=== PATIENT | female | born 1985 | race Caucasian/White ===

== ENCOUNTER 2018-07-24 14:36 | Emergency (ER) | payer MEDICAID ==
--- NOTE | 2018-07-24 15:31 | EDM.PDOC ---
ED HPI GENERAL MEDICAL PROBLEM - General Chief Complaint: General Stated Complaint: ABCESSED TOOTH, SWOLLEN FACE Time Seen by Provider: 07/24/18 15:20 Source of Information: Reports: Patient, RN Notes Reviewed History Limitations: Reports: No Limitations - History of Present Illness INITIAL COMMENTS - FREE TEXT/NARRATIVE: Calli presents today for complaints of worsening left facial pain/edema and pain. Dental abscess with current use of augmenting, worsening edema, fevers and chills. Left Face/Facial Pain Score (Numeric/FACES): 5 - Related Data Allergies Allergy/AdvReac Type Severity Reaction Status Date / Time No Known Allergies Allergy Verified 07/24/18 15:13 Home Meds: Home Meds Amoxicillin/Clavulanate K [Augmentin 500-125 MG] 1 tab PO ASDIRECTED 07/24/18 [ History] Cholecalciferol (Vitamin D3) [Vitamin D] 1 tab PO DAILY 07/24/18 [History] Past Medical History Genitourinary History: Reports: None [employer] History: Reports: Endocrine/Metabolic History: Reports: Obesity/BMI 30+ - Past Surgical History Head Surgeries/Procedures: Reports: None Female Surgical History: Reports: Salpingo-Oophorectomy Endocrine Surgical History: Reports: None Dermatological Surgical History: Reports: None Social & Family History - Tobacco Use Smoking Status *Q: Current Every Day Smoker Years of Tobacco use: 15 Packs/Tins Daily: 0.5 Second Hand Smoke Exposure: No - Caffeine Use Caffeine Use: Reports: Coffee - Alcohol Use Days Per Week of Alcohol Use: 2 Number of Drinks Per Day: 3 Total Drinks Per Week: 6 - Recreational Drug Use Recreational Drug Use: No ED ROS GENERAL - Review of Systems Review Of Systems: See Below Constitutional: Reports: Fever, Chills HEENT: Reports: Dental Pain, Nose Pain, Other (paint to left face, maxillary sinus and left nose. ). Denies: Ear Discharge, Ear Pain, Eye Discharge, Eye Pain Respiratory: Reports: No Symptoms Cardiovascular: Reports: No Symptoms GI/Abdominal: Reports: No Symptoms Skin: Reports: Other (edema, erythema left face) Neurological: Reports: No Symptoms Psychiatric: Reports: No Symptoms Hematologic/Lymphatic: Reports: No Symptoms Immunologic: Reports: No Symptoms ED EXAM, GENERAL - Physical Exam Exam: See Below Free Text/Narrative:: Calli presents today for complaints of increased swelling and pain to left face. Exam Limited By: No Limitations General Appearance: Alert, WD/WN, Mild Distress Eye Exam: Bilateral Eye: Normal Inspection, PERRL, Vision Changes Ears: Normal External Exam, Normal Canal, Hearing Grossly Normal, Normal TMs Ear Exam: Bilateral Ear: Auricle Normal, Canal Normal, TM normal Nose: Normal Inspection, Normal Mucosa, No Blood Throat/Mouth: No Airway Compromise, Inflammation, Other (edema, erythema to left cheek, noted purulent drainage to upper left gum line. ) Head: Atraumatic, Facial Swelling Neck: Normal Inspection, Supple, Non-Tender, Full Range of Motion, Lymphadenopathy (L). No: Lymphadenopathy (R) Respiratory/Chest: No Respiratory Distress, Lungs Clear, Normal Breath Sounds, No Accessory Muscle Use, Chest Non-Tender Cardiovascular: Normal Peripheral Pulses, Regular Rate, Rhythm, No Edema, No Gallop, No Murmur, No Rub, Other Peripheral Pulses: 2+: Radial (L), Radial (R) Extremities: Normal Inspection, Normal Range of Motion, Non-Tender, No Pedal Edema, Normal Capillary Refill Neurological: Alert, Oriented, CN II-XII Intact, Normal Cognition, Normal Gait, Normal Reflexes, No Motor/Sensory Deficits Psychiatric: Normal Affect, Normal Mood Skin Exam: Warm, Dry, Erythema, Increased Warmth, Other (to left face) Course - Vital Signs Last Recorded V/S: Last Vital Signs Temp 37.1 C 07/24/18 15:15 Pulse 120 H 07/24/18 15:15 Resp 16 07/24/18 15:15 BP 157/98 H 07/24/18 15:15 Pulse Ox 96 07/24/18 15:15 - Orders/Labs/Meds Labs: Laboratory Tests 07/24/18 07/24/18 Range/Units 15:40 15:40 WBC 10.1 (4.5-11.0) K/uL RBC 4.68 (3.30-5.50) M/uL Hgb 14.8 (12.0-15.0) g/dL Hct 43.5 (36.0-48.0) % MCV 93 (80-98) fL MCH 32 H (27-31) pg MCHC 34 (32-36) % Plt Count 222 (150-400) K/uL Neut % (Auto) 78 H (36-66) % Lymph % (Auto) 14 L (24-44) % [place] % (Auto) 7 H (2-6) % Eos % (Auto) 1 L (2-4) % Baso % (Auto) 0 (0-1) % Sodium 137 L (140-148) mmol/L Potassium 4.1 (3.6-5.2) mmol/L Chloride 100 (100-108) mmol/L Carbon Dioxide 25 (21-32) mmol/L Anion Gap 16.1 H (5.0-14.0) mmol/L BUN 8 (7-18) mg/dL Creatinine 0.8 (0.6-1.0) mg/dL Est Cr Clr Drug Dosing 103.55 mL/min Estimated GFR (MDRD) > 60 (>60) Glucose 108 H (74-106) mg/dL Calcium 9.6 (8.5-10.1) mg/dL Patient lab work reviewed She will stop use of augmentin and start use of clindamycin as directed Patient in agreement with plan Follow up with dentist as needed Departure - Departure Time of Disposition: 16:00 Disposition: Home, Self-Care 01 Condition: Good Clinical Impression: Dental abscess - Discharge Information *PRESCRIPTION DRUG MONITORING PROGRAM REVIEWED*: Not Applicable *COPY OF PRESCRIPTION DRUG MONITORING REPORT IN PATIENT MARYELLEN: Not Applicable Instructions: Dental Abscess Referrals: PCP,None [Primary Care Provider] - Forms: ED Department Discharge Additional Instructions: Dental abscess with drainaing. Stop use of augmentin and start use of clindamycin as directed Patient in agreement with plan Follow up with dentist as needed Take ibuprofen 800mg by mouth three times a day as needed Can also take tylenol as needed for pain Follow up with dentist as needed Return for any worsening, issues or concerns - Assessment/Plan Assessment:: Dental Abscess Plan: Dental abscess with drainaing. Stop use of augmentin and start use of clindamycin as directed Patient in agreement with plan Follow up with dentist as needed Take ibuprofen 800mg by mouth three times a day as needed Can also take tylenol as needed for pain Follow up with dentist as needed Return for any worsening, issues or concerns
--- NOTE | 2018-07-24 15:33 | EDM.PDOC ---
ED HPI GENERAL MEDICAL PROBLEM - General Chief Complaint: General Stated Complaint: ABCESSED TOOTH, SWOLLEN FACE Time Seen by Provider: 07/24/18 15:20 Source of Information: Reports: Patient, RN Notes Reviewed History Limitations: Reports: No Limitations - History of Present Illness INITIAL COMMENTS - FREE TEXT/NARRATIVE: Calli presents today for complaints of worsening left facial pain/edema and pain. Dental abscess with current use of augmenting, worsening edema, fevers and chills. Left Face/Facial Pain Score (Numeric/FACES): 5 - Related Data Allergies Allergy/AdvReac Type Severity Reaction Status Date / Time No Known Allergies Allergy Verified 07/24/18 15:13 Home Meds: Home Meds Amoxicillin/Clavulanate K [Augmentin 500-125 MG] 1 tab PO ASDIRECTED 07/24/18 [ History] Cholecalciferol (Vitamin D3) [Vitamin D] 1 tab PO DAILY 07/24/18 [History] Past Medical History Genitourinary History: Reports: None [employer]ING [employer] History: Reports: Endocrine/Metabolic History: Reports: Obesity/BMI 30+ - Past Surgical History Head Surgeries/Procedures: Reports: None Female Surgical History: Reports: Salpingo-Oophorectomy Endocrine Surgical History: Reports: None Dermatological Surgical History: Reports: None Social & Family History - Tobacco Use Smoking Status *Q: Current Every Day Smoker Years of Tobacco use: 15 Packs/Tins Daily: 0.5 Second Hand Smoke Exposure: No - Caffeine Use Caffeine Use: Reports: Coffee - Alcohol Use Days Per Week of Alcohol Use: 2 Number of Drinks Per Day: 3 Total Drinks Per Week: 6 - Recreational Drug Use Recreational Drug Use: No ED ROS ENT - Review of Systems Constitutional: Reports: Fever, Chills Course - Vital Signs Last Recorded V/S: Last Vital Signs Temp 37.1 C 07/24/18 15:15 Pulse 120 H 07/24/18 15:15 Resp 16 07/24/18 15:15 BP 157/98 H 07/24/18 15:15 Pulse Ox 96 07/24/18 15:15 - Orders/Labs/Meds Orders: Active Orders 24 hr Category Date Time Status BASIC METABOLIC PANEL,BMP [CHEM] Stat Lab 07/24/18 15:29 Ordered CBC WITH AUTO DIFF [HEME] Stat Lab 07/24/18 15:29 Ordered Departure - Discharge Information Referrals: PCP,None [Primary Care Provider] - Forms: ED Department Discharge - My Orders Last 24 Hours: My Active Orders 07/24/18 15:29 BASIC METABOLIC PANEL,BMP [CHEM] Stat CBC WITH AUTO DIFF [HEME] Stat - Assessment/Plan Last 24 Hours: My Active Orders 07/24/18 15:29 BASIC METABOLIC PANEL,BMP [CHEM] Stat CBC WITH AUTO DIFF [HEME] Stat
== END 2018-07-24 16:04 | disposition home or self-care (01) ==
LOC: JP.ED 14:36
DX: K04.7 Periapical abscess without sinus (principal); F17.210 Nicotine dependence, cigarettes, uncomplicated; Z79.899 Other long term (current) drug therapy
CPT/HCPCS: 36415; 80048; 85025; 99283

== ENCOUNTER 2022-02-12 07:09 | Day surgery (SDC) | payer MEDICAID ==
[2022-02-12] MEDS ORDERED: Neostigmine Methylsulfate 1 MG/ML 5 ML Syringe ONE (07:12)
[2022-02-12] MEDS ORDERED: Succinylcholine 200 MG/10 ML MDV ONE (07:12)
[2022-02-12] MEDS ORDERED: Dexamethasone 4 MG/ML SDV ONE (07:12)
[2022-02-12] MEDS ORDERED: fentaNYL 250 MCG/5 ML SDV ONE ×2 (07:12→09:51)
[2022-02-12] MEDS ORDERED: Ondansetron 4 MG/2 ML SDV ONE (07:12)
[2022-02-12] MEDS ORDERED: Propofol 200 MG/20 ML SDV ONE (07:12)
[2022-02-12] MEDS ORDERED: Glycopyrrolate 0.2 MG/ML 5 ML MDV ONE (07:12)
[2022-02-12] MEDS ORDERED: Rocuronium 50 MG/5 ML Vial ONE ×2 (07:12→10:34)
[2022-02-12] MEDS ORDERED: Dextrose 5%-Lactated Ringers 1,000 ML IV SCH (07:45)
[2022-02-12] MEDS ORDERED: Acetaminophen 500 MG Tab PO ONE (07:45)
[2022-02-12] MEDS ORDERED: ceFAZolin 2 GM in Sodium Chloride 0.9% 50 ML IV ONE (07:45)
[2022-02-12] MEDS ORDERED: Albuterol/Ipratropium 3.0-0.5 MG/3 ML Neb Soln NEB ONE (08:29)
[2022-02-12] MEDS ORDERED: Ketamine 500 MG/5 ML MDV IV SCH (09:00)
[2022-02-12] MEDS ORDERED: Ketamine 19 MG in Sodium Chloride 0.9% 19.81 ML IV SCH (09:00)
[2022-02-12] MEDS ORDERED: Bupivacaine 0.5%/EPINEPHrine 1:200,000 50 ML MDV ONE (09:43)
[2022-02-12] MEDS ORDERED: Meropenem 500 MG SDV ONE (10:12)
[2022-02-12] MEDS ORDERED: Linezolid 600 MG/300 ML Premix Bag IRR ONE (10:24)
[2022-02-12] MEDS ORDERED: Lactated Ringers 1,000 ML ONE (10:36)
[2022-02-12] MEDS ORDERED: Ketorolac 30 MG/ML SDV ONE (12:32)
[2022-02-12] MEDS ORDERED: Sugammadex Sodium 200 MG/2 ML VIAL ONE (12:43)
[2022-02-12] MEDS ORDERED: HYDROmorphone 2 MG Tab PO PRN (13:48)
[2022-02-12] MEDS ORDERED: Ibuprofen 600 MG Tab PO ONE (15:42)
== END 2022-02-12 15:54 | disposition home or self-care (01) ==
LOC: JP.SDS 07:09
PROVIDERS: ATTEND Surgery
DX: K43.6 Other and unspecified ventral hernia with obstruction, without gangrene (principal); K43.0 Incisional hernia with obstruction, without gangrene; E55.9 Vitamin D deficiency, unspecified; E05.90 Thyrotoxicosis, unspecified without thyrotoxic crisis or storm; R73.03 Prediabetes; E78.1 Pure hyperglyceridemia; E66.9 Obesity, unspecified; F17.210 Nicotine dependence, cigarettes, uncomplicated; Z91.030 Bee allergy status; Z79.899 Other long term (current) drug therapy; Z79.84 Long term (current) use of oral hypoglycemic drugs
CPT/HCPCS: 49587; 49655; 94640; A9270; C1781; J0171; J0330; J0690; J1100; J1885; J2020; J2185; J2405; J2704; J2710; J2795; J3010; J3490; J7120; J7121; J7620

== ENCOUNTER 2022-06-05 15:48 | Emergency (ER) | payer MEDICAID ==
[2022-06-05 17:07] LABS: TROPONIN I HIGH SENSITIVITY 6.4 pg/mL (<=60.3)
== END 2022-06-05 17:23 | disposition home or self-care (01) ==
LOC: JP.ED 15:48
DX: M94.0 Chondrocostal junction syndrome [Tietze] (principal); E66.9 Obesity, unspecified; Z68.34 Body mass index [BMI] 34.0-34.9, adult; Z91.030 Bee allergy status; Z86.16 Personal history of COVID-19
CPT/HCPCS: 36415; 71045; 71045-26; 80048; 84439; 84443; 84484; 85025; 85379; 93005; 99285